=== PATIENT | male | born 1985 | race Caucasian/White ===

== ENCOUNTER 2016-06-11 18:35 | Emergency (ER) | payer OTHER ==
[~2016-06-11] VITALS: Ht 182.9 cm; Wt 74.5 kg
[2016-06-11 18:54] VITALS: BP 135/80; PULSE 63; RESP 16; O2SAT 98
--- NOTE | 2016-06-11 20:25 | ED.REPORT ---
HPI-General Illness Date of Service Jun 11, 2016 ED Provider: Kenrick Etienne MD A 30 year old male with a history of anxiety presents to the ED after a panic attack that occurred earlier this evening. Patient [place] the [place] when he felt sudden onset of SOB, diaphoresis, dizziness, weakness, and shaking and numbness and tingling in his hands. He reports similar episodes during his previous panic attacks but the intensity of this episode was significantly worse. The episode lasted approx. 30 minutes. Patient was able to eat and drink after the incident. Patient recently begun taking citalopram 3 days ago. He denies any chest pain, vomiting, current SOB, syncope or LOC. Nursing Notes Stated Complaint: PANIC ATTACK, SHAKEY, NAUSEA Chief Complaint: General Complaint Nursing Notes Reviewed: Yes Allergies: Coded Allergies: No Known Allergies (Unverified , 06/11/16) General Time Seen by MD: 20:20 Chief Complaint Other (Panic attack) Hx Obtained From: Patient Arrived By: Walk-in Sudden in Onset?: Yes Onset Occurred: 1 - 4 hours ago Context of Onset: Other (Recent medication change) Symptom Duration: Since onset Associated with: Reports: Diaphoresis, Difficulty breathing, Dizziness, Nausea , Shortness of breath, Weakness, Denies: Loss of consciousness, Vomiting Pertinent Negative: Pt denies other symptoms Recent Healthcare: No recent doctor visit, No recent hospitalization Past Medical History Past Medical History Anxiety- hx of panic attacks Past Surgical History None reported Smoking History Unknown if Ever Smoker Social History Alcohol Use: Denies alcohol use (Used to drink "socially") Other Social History: Good social support, Local resident Ambulatory Status Independent Review of Systems Full Review of Systems Constitutional: Denies: Chills, Fever Respiratory: Reports: Shortness of breath Cardiovascular: Denies: Chest pain GI: Reports: Nausea, Denies: Abdominal pain, Vomiting Skin: Reports Diaphoresis Neurologic: Reports: Dizziness, Lightheaded, Shaking, Denies: Change LOC, Syncope Psychiatric: Reports: Anxiety, Stress Complete sys rev & neg: except as marked. Physical Exam Vital Signs Vital Signs Date Time Temp Pulse Resp B/P Pulse Ox O2 Delivery O2 Flow Rate FiO2 06/11/16 21:44 68 16 116/73 99 Room Air 06/11/16 20:48 71 16 114/72 95 Room Air 06/11/16 18:54 36.8 63 16 135/80 98 Room Air Initial VS: Reviewed Neck: Supple, Non-tender, Full range of motion Skin: Warm, Dry, No cyanosis Neurologic: Alert, Oriented, Nonfocal Psychiatric: Mood/affect normal, Behavior normal, Normal thought content General/Constitutional: Awake, Alert Behavior: Positive: Anxious Head / Eyes: Atraumatic, Normocephalic Respiratory / Chest: Atraumatic, Breath sounds NL, Breath sounds = bilat, No respiratory distress Cardiovascular: Heart rate NL, Regular rhythm, Heart sounds NL Abdomen: Atraumatic, Soft Upper Extremities Upper Extremity / MS: Atraumatic, Inspection NL, Neurologic intact, Vascular intact Lower Extremity / Pelvis / MS: Atraumatic, Inspection NL, Neurologic intact, Vascular intact Interpretation & Diagnostics ECG Interpretation ECG Interpretation: Sinus rhythm Rate 71 Time: 19:27 Interpreted by: ED physician Re-Eval/Medical Decision Med Decision/Clinical Course 30-year-old male with history of anxiety and panic attacks presenting with panic attack this afternoon. Reports this was similar to his typical panic though more severe. He recently started Celexa 4 days ago. Patient feels at his baseline now. I offered to perform lab workup though patient declines. EKG no signs ischemia. Counseled him to call his primary doctor tomorrow to discuss instituting a different antianxiety medication. I have given him several lorazepam to go home with to use as needed. Patient agrees with plan. Time of Eval: 21:05 Patient Status: Condition improved Re-Evaluation/Progress Note: Patient is rechecked. He is informed of his EKG results. Patient declines blood work at this time. Counseled Regarding: Diagnosis, Need for follow-up, When/why to return to ED Discharge & Departure Primary Impression: Panic attack Disposition: Home Discharge Condition All VS Reviewed: Yes Condition: Stable Additional Instructions: Thank you for trusting us with your care this evening. Your EKG is reassuring and I believe your symptoms are due to a panic attack. Please do not drink or drive this evening as you have received sedative medication. Schedule a follow up appointment with your primary care physician tomorrow. I recommend you stop taking citalopram and talk with your doctor about switching anxiety medications. Please take Ativan as directed. Please return to the emergency department for any new or worsening conditions including chest pain, difficulty breathing, or loss of consciousness. Referrals: Deepti Weaver MD (PCP) [facility] Attestation Portions of this note were transcribed by Vero Hargrove. I, Dr. Etienne personally performed the history, physical exam and medical decision-making; I reviewed and confirmed the accuracy of the information in the transcribed note. Signed by: Alma Rosa Wolf, 06/11/16 [id number]. copies to: Deepti Weaver MD, Ben M MD Jun 11, 2016 20:25 VERO HARGROVE Jun 11, 2016 21:02
[2016-06-11 20:48] VITALS: BP 114/72; PULSE 71; RESP 16; O2SAT 95
[2016-06-11] MEDS ORDERED: _LORazepam 1 mg Tablet PO PRN (21:15)
[2016-06-11 21:44] VITALS: BP 116/73; PULSE 68; RESP 16; O2SAT 99
== END 2016-06-11 21:49 | disposition home or self-care (01) ==
LOC: SED 18:35
DX: F41.0 Panic disorder [episodic paroxysmal anxiety] (principal)